=== PATIENT | female | born 1935 ===

== ENCOUNTER 2020-05-22 06:46 | Day surgery (SDC) | payer OTHER ==
[~2020-05-22] VITALS: Ht 154.9 cm; Wt 58.1 kg
[~2020-05-22 06:46] MED LIST: AMLODIP PO; SIMVASTAT PO
== END 2020-05-22 15:50 | disposition home or self-care (01) ==
LOC: CIR.AMB 06:46
PROVIDERS: ATTEND Surgery
DX: D05.11 Intraductal carcinoma in situ of right breast (principal); Z20.822 Contact with and (suspected) exposure to COVID-19